=== PATIENT | female | born 1995 | race Caucasian/White ===

== ENCOUNTER 2019-04-12 20:51 | Inpatient (IN) | payer MEDICAID ==
[2019-04-12] MEDS ORDERED: LACTATED RINGER'S 1,000 ML IV (21:32)
[2019-04-12] MEDS ORDERED: AMPICILLIN 2 GM/NS (PMX) 100 ML (21:39)
[2019-04-12] MEDS ORDERED: METHYLERGONOVINE 0.2 MG INJ IM (22:00)
[2019-04-12] MEDS ORDERED: CARBOPROST 250 MCG INJ IM (22:00)
[2019-04-12] MEDS ORDERED: BUTORPHANOL 2 MG INJ IV ×2 (22:00)
[2019-04-12] MEDS ORDERED: MINERAL OIL LIGHT 10 ML VIAL TOP (22:00)
[2019-04-12] MEDS ORDERED: IBUPROFEN 600 MG TAB PO (22:00)
[2019-04-12] MEDS ORDERED: LIDOCAINE 1% (MPF) 30 ML INJ INJ (22:00)
[2019-04-12] MEDS ORDERED: OXYTOCIN 30 UNITS/LR 500 ML IV (22:00)
[2019-04-12] MEDS ORDERED: MISOPROSTOL 200 MCG TAB PR (22:00)
[2019-04-12] MEDS: OXYTOCIN 30 UNITS/LR 500 ML IV ×2 (22:02→22:06)
[2019-04-12] MEDS: AMPICILLIN 2 GM/NS (PMX) 100 ML IV (22:05)
[2019-04-12] MEDS: LACTATED RINGER'S 1,000 ML IV (22:05)
[2019-04-13] MEDS ORDERED: METHYLERGONOVINE 0.2 MG INJ IM (01:00)
[2019-04-13] MEDS ORDERED: BENZOCAINE 20% 56 ML SPRAY TOP (01:00)
[2019-04-13] MEDS ORDERED: LANOLIN HPA 1 PKT TOP (01:00)
[2019-04-13] MEDS ORDERED: CARBOPROST 250 MCG INJ IM (01:00)
[2019-04-13] MEDS ORDERED: WITCH HAZEL/GLYCERIN PAD PR (01:00)
[2019-04-13] MEDS ORDERED: ZOLPIDEM 5 MG TAB PO (01:00)
[2019-04-13] MEDS: IBUPROFEN 600 MG TAB PO ×4 (01:00→18:00)
[2019-04-13] MEDS ORDERED: OXYCODONE/ASPIRIN (4.88/325) TAB PO ×2 (01:00)
[2019-04-13] MEDS ORDERED: MISOPROSTOL 200 MCG TAB PR (01:00)
[2019-04-13] MEDS ORDERED: OXYTOCIN 30 UNITS/LR 500 ML IV (01:00)
[2019-04-13] MEDS ORDERED: AMPICILLIN 1 GM/NS (PMX) 50 ML IV (02:00)
[2019-04-13] MEDS: SENNA/DOCUSATE NA (8.6MG/50MG) TAB PO ×2 (09:23→22:36)
[2019-04-14] MEDS: IBUPROFEN 600 MG TAB PO ×3 (06:00→12:00)
[2019-04-14] MEDS: SENNA/DOCUSATE NA (8.6MG/50MG) TAB PO (09:54)
[2019-04-14] MEDS: DIPHTH/TET/ACEL PERTUSS (ADULT) 0.5 ML VIAL IM* (09:55)
== END 2019-04-14 13:05 | disposition home or self-care (01) | DRG 807 ==
LOC: OBT 20:51 → L-D 20:53 → OBT 21:20 → L-D 21:23 → PP1 23:53
PROC: 10E0XZZ Delivery of Products of Conception, External Approach (ICD-10-PCS; principal; 2019-04-12)
DX: O60.14X0 Preterm labor third trimester with preterm delivery third trimester, not applicable or unspecified (principal); Z37.0 Single live birth; Z3A.36 36 weeks gestation of pregnancy; Z23 Encounter for immunization
CPT/HCPCS: 80307; 85025; 85610; 85730; 86592; 86762; 86850; 86900; 86901; 87340; 90715; 99464